=== PATIENT | male | born 1975 | race Caucasian/White ===

== ENCOUNTER 2019-06-08 00:48 | Emergency (ER) | payer SELFPAY ==
--- NOTE | 2019-06-08 01:15 | ED Physician Chart ---
ED Chief Complaint/HPI - Patient Information Date Seen:: 06/08/19 Time Seen:: 01:08 Chief Complaint:: LT FACIAL WEAKNESS History of Present Illness:: 43 YR OLD MALE WITH LT SIDED WEAKNESS AT 1130 PM WHILE IN THE BACK OF THE CAR WAS [facility]IB [facility] BECAUSE [facility] WAS CLOSED THE REPORT WAS PALPITATIONS AND SYNCOPE Allergies:: Allergies Allergy/AdvReac Type Severity Reaction Status Date / Time No Known Allergies Allergy Verified 06/08/19 01:01 Vitals:: Vital Signs - 8 hr 06/08/19 01:02 Temp 98.5 F HR 105 RR 19 BP 142/96 O2 Sat % 96 ED Review of Systems - Review of Systems General/Constitutional: No fever Skin: No skin lesions Head: Headache Eyes: Acuity change ENT: No earache Neck: No neck pain Cardio Vascular: No chest pain Pulmonary: No SOB GI: No vomiting G/U: No dysuria Musculoskeletal: No back pain Endocrine: No polyuria Psychiatric: No prior psych history ED Past Medical History - Past Medical History Past Medical History: HTN ED Physical Exam - Physical Examination Head: Atraumatic Skin: Nl inspection ENMT: External ears, nose nl Neck: Nontender Respiratory: Nl effort/Exclusion Cardio Vascular: RRR GI: No tenderness/rebounding/guarding Extremities: No tenderness or effusion Other Extremities comments:: LT SIDED WEAKNESS LT FACIAL DROOP Neuro/Psych: Alert/oriented Other Neuro/Psych comments:: LT FACIAL DROOP LT SIDED WEAKNESS GETTING BETTER ED Assessment - Assessment General Assessment: ACUTE CVA WITH LT SIDED WEAKNESS ED Septic Shock - . Is Septic Shock (SBP<90, OR Lactate>4 mmol\L) present?: No - <6hrs of presentation: Vital Signs: Vital Signs - 8 hr 06/08/19 01:02 Temp 98.5 F HR 105 RR 19 BP 142/96 O2 Sat % 96 ED Reassessment (Disposition) - Reassessment Reassessment:: ACUTE CVA WITH LT SIDED WEAKNESS - Diagnosis Diagnosis:: ACUTE CVA WITH LT SIDED WEAKNESS - Patient Disposition Discharge/Transfer:: Acute Care (other hosp) Condition at Disposition:: Stable
[2019-06-08 01:19] LABS: % BASOPHILS 0.8 % (0.0-2.0); % EOSINOPHILS 2.3 % (0.0-5.0); % LYMPHOCYTES 30.7 % (20.0-50.0); % MONOCYTES 8.6 % (2.0-10.0); % NEUTROPHILS 57.6 % (40.0-80.0); BASOPHILE ABSOLUTE 0.1 Th/cumm (0-0.2); EOSINOPHILE ABSOLUTE 0.2 Th/cmm (0.1-0.4); HEMATOCRIT 42.6 % (41.0-60); HEMOGLOBIN 14.5 gm/dL (12-16); LYMPHOCYTE ABSOLUTE 2.6 Th/cmm (1.5-3.0); MEAN CELL VOLUME 85.8 fl (80-99); MEAN CORPUSCULAR HEMOGLOBIN 29.2 pg (26.0-30.0); MONOCYTE ABSOLUTE 0.7 Th/cmm (0.3-1.0); NEUTROPHILE ABSOLUTE 4.9 Th/cmm (1.8-8.0); PLATELET COUNT 266 Th/cmm (150-400); RED BLOOD COUNT 4.97 Mil/cmm (4.30-5.70); RED CELL DISTRIBUTION WIDTH 11.8 % (11.5-20.0); WHITE BLOOD COUNT 8.5 Th/cmm (4.8-10.8)
[2019-06-08 01:29] LABS: ALB/GLOB RATIO 1.5 (1.0-1.8); ALBUMIN 4.4 gm/dL (4.2-5.5); ALKALINE PHOSPHATASE 67 U/L (34-104); ANION GAP 13.5 (7.0-16.0); BILIRUBIN,TOTAL 0.3 mg/dL (0.3-1.0); BUN - UREA NITROGEN 16 mg/dL (7-25); CALCIUM SERUM 9.7 mg/dL (8.6-10.3); CARBON DIOXIDE 21.8 mEq/L (21.0-31.0); CHLORIDE 104 mEq/L (98-107); CREATININE - SERUM 0.8 mg/dL (0.7-1.3); CREATININE KINASE 60 U/L (30-223); GFR AFRICAN-AMERICAN > 60.0 ml/min (>90); GFR NON AFRICAN-AMERICAN > 60.0 ml/min; GLUCOSE 128 mg/dL (70-105); POTASSIUM SERUM 3.3 mEq/L (3.5-5.1); SGOT 19 U/L (13-39); SGPT/ALT 27 U/L (7-52); SODIUM SERUM 136 mEq/L (136-145); TOTAL PROTEIN,SERUM 7.3 gm/dL (6.0-8.3)
[2019-06-08] MEDS ORDERED: IOHEXOL 350mgI/mL 100mL Bottle IVP ONE ×2 (01:38→01:48)
[2019-06-08] MEDS: Potassium Chloride 20 mEq ER Tab PO ONE (02:44)
--- NOTE | 2019-06-08 09:23 | Diagnostic Imaging Report ---
CT scan of the brain without contrast History: CVA Total DLP equals 717 CTDI equals 36.8 Axial sections were obtained from the base of the skull to the vertex without administration of intravenous contrast material. There is a normal ventricular system size. No focal parenchymal lesions are seen. No evidence of any mass effect or shift of midline structures. No extra-axial masses or abnormal fluid collections. Impression: Negative examination.
--- NOTE | 2019-06-08 09:23 | Diagnostic Imaging Report ---
CT scan of the brain without contrast History: CVA Total DLP equals 672 CTDI equals 36.3 Axial sections were obtained from the base of the skull to the vertex. There is a normal ventricular system size. No focal parenchymal lesions are seen. No evidence of any mass effect or shift of midline structures. No extra-axial masses or abnormal fluid collections. Impression: Negative examination
--- NOTE | 2019-06-08 11:03 | Diagnostic Imaging Report ---
CT Carotid angiogram History: Altered Rule out CVA Comparison: CT head performed on 06/08/2019 Technique: Axial images were obtained from the thoracic inlet to the vertex of the skull following administration of IV contrast, angiogram protocol. Multiplanar reconstructions were made. Total DLP 394, CTD I 30 Findings: The bilateral parapharyngeal fat planes are preserved. The thyroid gland is unremarkable. The airway is patent. No prevertebral soft tissue swelling. The osseous structures demonstrate no acute abnormalities. There is a 1 cm high density lesion within the T1 vertebral body possibly a bone island. The lung apices demonstrate atelectatic changes. Vasculature: Codominant bilateral vertebral arteries are noted. The bilateral common carotid and internal carotid arteries are patent. No significant focal atherosclerotic vascular disease noted noted. Minimal early intimal thickening is noted. The intracranial vasculature including the visualized anterior cerebral, middle cerebral, and posterior cerebral arteries are grossly patent, however assessment was limited on this exam. No evidence of aneurysm or gross dissection. IMPRESSION: No significant focal atherosclerotic vascular disease. No hemodynamically significant stenosis. Minimal early intimal thickening is noted. Note assessment of the intracranial arterial vasculature was suboptimal on this exam. No evidence of an aneurysm or dissection. Incidentally noted 1 cm sclerotic density within the T1 vertebral body probably incidental bone island. Correlate with old exams. Consider follow-up surveillance. Final results were administered to the referring team on 06/08/1911 exam.
== END 2019-06-08 02:00 | disposition short-term general hospital (02) ==
LOC: ER 00:48
DX: I69.354 Hemiplegia and hemiparesis following cerebral infarction affecting left non-dominant side (principal); I10 Essential (primary) hypertension
CPT/HCPCS: 99285; 93005; 70450; 70460; 70498; 84484; 36415; 84443; 85025; 82550; 80053; Q9967 ×2